=== PATIENT | female | born 1975 | race Caucasian/White ===

== ENCOUNTER 2022-04-19 18:01 | Emergency (ER) | payer BC, SELFPAY ==
[2022-04-19] VITALS (41 sets, daily range): BP systolic 127–161; BP diastolic 62–131; PULSE 57–80; RESP 12–24; TEMP 36.6; O2SAT 96–99
--- NOTE | 2022-04-19 18:00 | RT.EKG_ITS ---
APPROVED REPORT Exam: Resting ECG Reason for Exam: chest pain Patient Location: E HR:64 bpm ECG Measurements Heart Rate 64 AXIS NH 137 P 43 QRSd 88 QRS -15 QT 368 T 19 QTc 380 Conclusion Sinus rhythm...normal P axis, V-rate 60- 99 sinus rhythm, normal axis, normal intervals, non ischemic
--- NOTE | 2022-04-19 18:45 | DI.RAD_ITS ---
Exam(s) XR CHEST 2V PA LATERAL EXAM: XR CHEST 2V PA LATERAL CLINICAL HISTORY: chest pain. TECHNIQUE: 2D digital imaging was performed. COMPARISON: No exams were available for comparison FINDINGS: 2 views: Heart size is normal. The mediastinum is not widened. Right lung is clear. There is platelike atelectasis in the lingular segment of the left lung. No pl eural effusions. No pneumothorax. IMPRESSION: Platelike atelectasis or scarring in the left lung base, specifically in the inferior lingular segmen t of the left lung.Comparison to any prior outside images would be helpful. DATA REPOSITORY: RADIATION DOSE DELIVERED:
[2022-04-19] MEDS: Aspirin 81 MG CHEW 324 MG CH (19:01)
[2022-04-19 19:19] LABS: Abs Immature Grans 0.05 10^3/uL (0.0-0.06); Absolute Basophil Count 0.06 10^3/uL (0.0-0.2); Absolute Eosinophil Count 0.39 10^3/uL (0.0-0.7); Absolute Lymphocyte Count 2.24 10^3/uL (1.2-3.4); Absolute Monocyte Count 0.61 10^3/uL (0.1-0.8); Absolute Neutrophil Count 7.69 10^3/uL (1.2-6.7); Basophils % 0.5; Eosinophils % 3.5; HCT 40.1 % (36.0-46.0); Immature Grans % 0.5; Lymphocytes % 20.3; MCHC 34.9 % (32.0-36.0); MCV 92 fL (80-95); MPV 9.4 fL (8.0-11.0); Monocytes % 5.5; Neutrophils % 69.7; Platelet Count 389 10^3/uL (130-400); RBC 4.37 10^6/uL (3.93-5.22); RDW 12.7 % (11.7-14.6); RDW-SD 42.2 fL; WBC 11.04 10^3/uL (4.4-10.8)
[2022-04-19 19:34] LABS: ALT 40 U/L (14-59); AST 30 U/L (15-37); Albumin 4.2 g/dL (3.4-5.0); Alkaline Phosphatase 77 U/L (46-116); Anion Gap 8.2 mmol/L (3-11); BUN 16 mg/dL (7-18); Bilirubin, Total 0.3 mg/dL (0.2-1.0); CO2 27.8 mmol/L (21.0-32.0); CREATININE 0.6 mg/dL (0.55-1.02); Calcium 9.6 mg/dL (8.5-10.1); Chloride 104 mmol/L (98-107); Glucose 105 mg/dL (74-106); Magnesium 1.9 mg/dL (1.8-2.4); Potassium 3.8 mmol/L (3.5-5.1); Sodium 140 mmol/L (136-145); Total Protein 7.5 g/dL (6.4-8.2); Troponin I < 50 ng/L (<or=60)
--- NOTE | 2022-04-19 19:45 | DI.VRAD_ITS ---
PROCEDURE INFORMATION: Exam: XR Chest Exam date and time: 04/19/2022 7:21 PM Age: 46 years old Clinical indication: Chest wall pain; Additional info: Chest pain TECHNIQUE: Imaging protocol: Radiologic exam of the chest. Views: 2 views. COMPARISON: No relevant prior studies available. FINDINGS: Lungs: Linear atelectasis or scarring is seen within the lingula. The lungs are otherwise clear. Pleural spaces: No pleural effusion or pneumothorax. Heart/Mediastinum: The cardiac silhouette is normal in size. Bones/joints: No acute osseous abnormality. IMPRESSION: Mild linear atelectasis or scarring within the lingula. Dictated and Authenticated by: Flori Fregoso MD. Ordering:AMARA Alfaro MD
[2022-04-19 19:46] LABS: D-Dimer 192 ng/mlFEU (<500)
--- NOTE | 2022-04-19 20:35 | ED.GENADUL_ITS ---
Discharge Plan Disposition Patient Disposition: HOME Condition: Improving Discharge Details Clinical Impression: Chest pain Primary Care Provider: Darío Guardado ED Provider: Dominic Daigle Home Meds and New Rx's Prescriptions: No Action No Known Home Meds Discharge Instructions Instructions: Chest Pain (ED) Additional Instructions: Work-up in the ER today does not reveal any obvious emergent process and your symptoms have resolved spontaneously. Please watch for new or worsening symptoms and return to the ER for any concerns. Lastly, please contact your primary care provider tomorrow to discuss your ER visit, and need for outpatient reevaluation. Discharge Data Discharge Date/Time-TO BE ENTERED AT DEPARTURE: 04/19/22 22:46 Medical Decision Making This is a 46-year-old female who denies significant past medical history reporting a bandlike discomfort across her lower chest upper abdomen, feeling nauseous and sweaty, symptoms are much improved now. She has never had any symptoms like this previously. Clinically she appears well, nontoxic, hemodynamically stable. Differential is broad and includes but not excluded to ACS, biliary colic, gastritis, PE, etc. Please obtain IV access, give full dose aspirin, obtain a cardiac work-up and reassess. Laboratory values reveal minimal nonspecific leukocytosis of 11.04, no evidence of anemia or thrombocytopenia. D-dimer is 192, will not pursue CTA of the chest. Electrolytes unremarkable, renal function normal, calcium 9.6 magnesium 1.9 total bili 0.3 LFTs unremarkable, troponin less than 50. Initial work-up here in the ER unremarkable, patient remains hemodynamically stable and nontoxic-appearing. She remains asymptomatic. She is agreeable to awaiting a delta troponin. Delta troponin remains less than 50. She remains asymptomatic. We had a discussion regarding disposition of admission here at our facility for cardiac rule out versus close outpatient follow-up and likely outpatient stress test and echocardiogram. Patient would prefer to be discharged home. I believe this to be a reasonable plan. She has the capacity to make this decision and understands the inherent risks of being discharged home. Standard discharge and return precautions were provided. Patient understands, is agreeable to this plan, and has no additional questions or concerns upon discharge. This documentation was generated using [employer] system, please disregard any oddities of phrase or misspellings. Imaging Data Radiologic Study: Attestation: I personally reviewed and interpreted this imaging study as follows: Imaging: X-Ray Radiologist's impression: PROCEDURE INFORMATION: Exam: XR Chest Exam date and time: 04/19/2022 7:21 PM Age: 46 years old Clinical indication: Chest wall pain; Additional info: Chest pain TECHNIQUE: Imaging protocol: Radiologic exam of the chest. Views: 2 views. COMPARISON: No relevant prior studies available. FINDINGS: Lungs: Linear atelectasis or scarring is seen within the lingula. The lungs are otherwise clear. Pleural spaces: No pleural effusion or pneumothorax. Heart/Mediastinum: The cardiac silhouette is normal in size. Bones/joints: No acute osseous abnormality. IMPRESSION: Mild linear atelectasis or scarring within the lingula. Lab Data Lab results reviewed: Yes I reviewed the patient's lab results. Labs: Laboratory Tests Range/Units 04/19/22 04/19/22 04/19/22 18:50 18:50 18:50 WBC (4.4-10.8) 10^3/uL 11.04 H RBC (3.93-5.22) 10^6/uL 4.37 Hgb (11.2-15.7) g/dL 14.0 Hct (36.0-46.0) % 40.1 MCV (80-95) fL 92 MCH (27.0-33.0) pg 32.0 MCHC (32.0-36.0) % 34.9 RDW (11.7-14.6) % 12.7 Plt Count (130-400) 10^3/uL 389 MPV (8.0-11.0) fL 9.4 Immature Gran % 0.5 Neutrophils % 69.7 Lymphocytes % 20.3 Monocytes % 5.5 Eosinophils % 3.5 Basophils % 0.5 Nucleated RBC % (0.0-0.3) % 0.0 Absolute Neutrophils (1.2-6.7) 10^3/uL 7.69 H Absolute Lymphocytes (1.2-3.4) 10^3/uL 2.24 Absolute Monocytes (0.1-0.8) 10^3/uL 0.61 Absolute Eosinophils (0.0-0.7) 10^3/uL 0.39 Absolute Basophils (0.0-0.2) 10^3/uL 0.06 D-Dimer (<500) ng/mlFEU 192 Sodium (136-145) mmol/L 140 Potassium (3.5-5.1) mmol/L 3.8 Chloride (98-107) mmol/L 104 Carbon Dioxide (21.0-32.0) mmol/L 27.8 Anion Gap (3-11) mmol/L 8.2 BUN (7-18) mg/dL 16 Creatinine (0.55-1.02) mg/dL 0.6 Estimated GFR/1.73 m2 (mL/min/1.73m2) >= 60.00 Glucose (74-106) mg/dL 105 Calcium (8.5-10.1) mg/dL 9.6 Magnesium (1.8-2.4) mg/dL 1.9 Total Bilirubin (0.2-1.0) mg/dL 0.3 AST (15-37) U/L 30 ALT (14-59) U/L 40 Alkaline Phosphatase (46-116) U/L 77 Troponin I (<or=60) ng/L < 50 Total Protein (6.4-8.2) g/dL 7.5 Albumin (3.4-5.0) g/dL 4.2 Range/Units 04/19/22 21:56 WBC (4.4-10.8) 10^3/uL RBC (3.93-5.22) 10^6/uL Hgb (11.2-15.7) g/dL Hct (36.0-46.0) % MCV (80-95) fL MCH (27.0-33.0) pg MCHC (32.0-36.0) % RDW (11.7-14.6) % Plt Count (130-400) 10^3/uL MPV (8.0-11.0) fL Immature Gran % Neutrophils % Lymphocytes % Monocytes % Eosinophils % Basophils % Nucleated RBC % (0.0-0.3) % Absolute Neutrophils (1.2-6.7) 10^3/uL Absolute Lymphocytes (1.2-3.4) 10^3/uL Absolute Monocytes (0.1-0.8) 10^3/uL Absolute Eosinophils (0.0-0.7) 10^3/uL Absolute Basophils (0.0-0.2) 10^3/uL D-Dimer (<500) ng/mlFEU Sodium (136-145) mmol/L Potassium (3.5-5.1) mmol/L Chloride (98-107) mmol/L Carbon Dioxide (21.0-32.0) mmol/L Anion Gap (3-11) mmol/L BUN (7-18) mg/dL Creatinine (0.55-1.02) mg/dL Estimated GFR/1.73 m2 (mL/min/1.73m2) Glucose (74-106) mg/dL Calcium (8.5-10.1) mg/dL Magnesium (1.8-2.4) mg/dL Total Bilirubin (0.2-1.0) mg/dL AST (15-37) U/L ALT (14-59) U/L Alkaline Phosphatase (46-116) U/L Troponin I (<or=60) ng/L < 50 Total Protein (6.4-8.2) g/dL Albumin (3.4-5.0) g/dL ECG Data Attestation: I personally reviewed and interpreted this ECG (s) as follows: Interpretation: Sinus rhythm, ventricular of 64, no STEMI. HPI General Mode of arrival: ambulatory . Date/Time Provider Initiated Documentation: 04/19/22 18:56 . Limitations to Documentation: no limitations . Information obtained by: patient and family . HPI Narrative: This is a 46-year-old female denies any significant past medical history presents to the ER reporting that she felt well throughout most of the day and then this evening while running errands she had a wave of nausea she then felt sweaty and she states that she had a band of tightness across her lower chest and upper abdomen, discomfort to her right shoulder and this was severe at that time and lasted for no longer than 15 minutes. Since that time progressively the pain has improved. Now she states it is barely noticeable. She denies recent illness or trauma, smoking, headache, neck pain, visual changes, fever, shortness of breath, back pain, vomiting, dysuria, numbness, tingling, weakness or extremities, pain or swelling in her lower extremities, skin rash. She has not taken any medication prior to arrival. Patient denies symptoms like this previously, has never had a stress test. Related Data Home Medications Medication Instructions Recorded Confirmed Unknown [No Known Home Meds] 04/19/22 04/19/22 Allergies Allergy/AdvReac Type Severity Reaction Status Date / Time No Known Allergies Allergy Unverified 04/19/22 18:17 General Stated Complaint: Chest Pain AYLIN: 2 Review of Systems Constitutional Constitutional: Denies fatigue, Denies fever(s), Denies headache(s) and Denies weakness Eyes Eyes: Denies change in vision ENT Ears, Nose, Mouth, and Throat: Denies headache(s) and Denies neck pain Cardiovascular Cardiovascular: Reports chest pain and Denies dyspnea Respiratory Respiratory: Denies cough and Denies dyspnea Gastrointestinal Gastrointestinal: Reports abdominal pain, Reports nausea and Denies vomiting Musculoskeletal Musculoskeletal: Denies back pain, Denies neck pain, Denies numbness and Denies tingling Integumentary/Breasts Skin/Breast: Denies rash Neurologic Neurologic: Denies headache(s), Denies numbness, Denies tingling and Denies weakness Endocrine Endocrine: Denies fatigue Hematologic/Lymphatic Hematologic/Lymphatic: Denies easy bleeding and Denies easy bruising PFSH All Active Problems Chest pain (Acute) Social History Smoking/Tobacco Use Status: Current every day Tobacco Type: cigarettes Smoking risk assessment performed?: Yes Alcohol Intake: current Alcohol Intake frequency: a few times a week Drug use: Never Substance use type: does not use Do you feel safe at home: Yes Do you feel safe in your relationship?: Yes Exam Const General: cooperative, healthy appearing, comfortable and no acute distress Orientation: alert, awake and oriented x3 HENMT Head: normal to inspection, normocephalic and atraumatic Face and sinus: normal facial exam Mouth: moist mucous membranes Throat: posterior oropharynx normal Eyes General: appearance normal, both eyes and all related structures Conjunctivae: conjunctivae normal Neck Neck: normal visual inspection, full ROM, trachea midline and supple Resp Effort & Inspection: normal respiratory effort and able to speak in complete sentences Auscultation: clear to auscultation bilaterally Cardio Rate: regular rate Rhythm: regular rhythm GI Palpation: soft and nontender Back/Spine/Pelvis Back: no CVA tenderness and No back tenderness Skin General skin exam: no rashes or lesions noted Neuro General: patient alert, patient awake, moves all extremities and no focal motor deficits Cognition: normal cognition Speech: speech normal Gait: normal gait Motor: muscle tone normal throughout Sensory Exam: no sensory deficits noted Extrem General: normal to inspection, full ROM, capillary refill normal, no pedal edema and no calf tenderness Psych Appearance: grossly normal Mental Status: mental status grossly normal Course Vital Signs Vital signs: Vital Signs Temperature 36.6 C 04/19/22 18:13 Pulse 67 04/19/22 18:13 Respiratory Rate 16 04/19/22 18:13 Blood Pressure 154/96 H 04/19/22 18:13 Pulse Oximetry 99 04/19/22 18:13 Temperature 36.6 C 04/19/22 18:13 Temperature Source Temporal Artery Scan 04/19/22 18:13 Pulse 65 04/19/22 19:16 Pulse 60 04/19/22 19:10 Respiratory Rate 14 04/19/22 19:16 Respiratory Effort 04/19/22 18:44 Respiratory Depth Normal 04/19/22 18:44 Blood Pressure 159/82 H 04/19/22 19:16 Blood Pressure Mean 100 04/19/22 19:16 Blood Pressure Position Sitting 04/19/22 18:13 Pulse Oximetry 98 04/19/22 19:16 Oxygen Delivery Method Room Air 04/19/22 18:13 Oxygen Flow Rate 0 04/19/22 18:13 Pain Level 10 04/19/22 18:44 Lab/Test Results Lab/Test Results: Laboratory Tests Range/Units 04/19/22 04/19/22 04/19/22 18:50 18:50 18:50 WBC (4.4-10.8) 10^3/uL 11.04 H RBC (3.93-5.22) 10^6/uL 4.37 Hgb (11.2-15.7) g/dL 14.0 Hct (36.0-46.0) % 40.1 MCV (80-95) fL 92 MCH (27.0-33.0) pg 32.0 MCHC (32.0-36.0) % 34.9 RDW (11.7-14.6) % 12.7 Plt Count (130-400) 10^3/uL 389 MPV (8.0-11.0) fL 9.4 Immature Gran % 0.5 Neutrophils % 69.7 Lymphocytes % 20.3 Monocytes % 5.5 Eosinophils % 3.5 Basophils % 0.5 Nucleated RBC % (0.0-0.3) % 0.0 Absolute Neutrophils (1.2-6.7) 10^3/uL 7.69 H Absolute Lymphocytes (1.2-3.4) 10^3/uL 2.24 Absolute Monocytes (0.1-0.8) 10^3/uL 0.61 Absolute Eosinophils (0.0-0.7) 10^3/uL 0.39 Absolute Basophils (0.0-0.2) 10^3/uL 0.06 D-Dimer (<500) ng/mlFEU 192 Sodium (136-145) mmol/L 140 Potassium (3.5-5.1) mmol/L 3.8 Chloride (98-107) mmol/L 104 Carbon Dioxide (21.0-32.0) mmol/L 27.8 Anion Gap (3-11) mmol/L 8.2 BUN (7-18) mg/dL 16 Creatinine (0.55-1.02) mg/dL 0.6 Estimated GFR/1.73 m2 (mL/min/1.73m2) >= 60.00 Glucose (74-106) mg/dL 105 Calcium (8.5-10.1) mg/dL 9.6 Magnesium (1.8-2.4) mg/dL 1.9 Total Bilirubin (0.2-1.0) mg/dL 0.3 AST (15-37) U/L 30 ALT (14-59) U/L 40 Alkaline Phosphatase (46-116) U/L 77 Troponin I (<or=60) ng/L < 50 Total Protein (6.4-8.2) g/dL 7.5 Albumin (3.4-5.0) g/dL 4.2
[2022-04-19 22:09] LABS: Troponin I < 50 ng/L (<or=60)
== END 2022-04-19 22:46 | disposition home or self-care (01) ==
PROVIDERS: Emergency Provider Physician Assistant; PCP Internal Medicine
DX: R07.89 Other chest pain (principal); F17.210 Nicotine dependence, cigarettes, uncomplicated; D72.829 Elevated white blood cell count, unspecified
CPT/HCPCS: 80053; 93005; 99283; 71046; 83735; 84484; 85025; 85379; 93010; 99285